=== PATIENT | female | born 1980 | race Caucasian/White ===

== ENCOUNTER → 2022-06-19 12:23 | Outpatient (CLI) | payer BC, SELFPAY ==
--- NOTE | ~2022-06-19 | MM_ITS ---
EXAMINATION: MM screening jimmy BI w elza HISTORY: Screening mammogram TECHNIQUE: Craniocaudal and mediolateral oblique 3-D tomosynthesis images were obtained and synthetic 2-D images were generated. Bilateral rotated lateral CC views. CAD analysis was submitted and interp reted. COMPARISON: No prior mammogram is available for comparison at this institution. BREAST PARENCHYMAL COMPOSITION: The breasts are extremely dense, which lowers the sensitivity of mamm ography. FINDINGS: Numerous punctate benign-appearing microcalcifications scattered in the fibroglandular stro ma bilaterally. There is no evidence of suspicious mass, calcification, or architectural distortion t o suggest malignancy in either breast. There has been no suspicious interval change. IMPRESSION: 1. No mammographic evidence of malignancy. 2. Recommend routine screening mammography in one year. BI-RADS Category 2: Benign finding(s). Reviewed, dictated and finalized at location A.
== END ==
PROVIDERS: PCP Physician Assistant Medical; Visit Provider Obstetrics & Gynecology Gynecology
DX: Z12.31 Encounter for screening mammogram for malignant neoplasm of breast (principal)
CPT/HCPCS: 77063; 77067

== ENCOUNTER 2022-12-09 18:43 | Emergency (ER) | payer BC, SELFPAY ==
--- NOTE | ~2022-12-09 | CT_ITS ---
EXAMINATION: CT abdomen pelvis wo con DATE: 12/09/2022 20:19 INDICATION: Eval urolithiasis. TECHNIQUE: Computed tomography (CT) of the abdomen and pelvis was performed with intravenous contrast . Automated exposure control and iterative reconstruction technique were employed. The dose-length pr oduct was 207.24 mGy-cm. COMPARISON: None. FINDINGS: Lower thorax: Unremarkable Liver: Normal. Biliary/Gallbladder: Gallbladder is partially collapsed. No bile duct dilation. Pancreas: No mass or duct dilation. Spleen: Normal. Adrenals:No mass. Kidneys: No mass, stone, or hydronephrosis. GI tract: No small or large bowel dilation. Appendix not confidently visualized. Mesentery/Peritoneum: No ascites, mass, or free air. Retroperitoneum: No mass. Pelvis: Pelvic organs are within normal limits. Soft Tissues: Soft tissues and body wall unremarkable. Bones: No acute osseous finding. IMPRESSION: No acute abdominopelvic process detected. Specifically there is no CT evidence of nephrolithiasis or obstructive uropathy. Reviewed, dictated and finalized at location K.
[2022-12-09 18:51] VITALS: BP 143/80; PULSE 104; RESP 18; TEMP 37; O2SAT 100
[2022-12-09 19:34] LABS: Bacteria Urine Rare /hpf; Need Manual Microscopic Reviewed; RBC Urine >100 /hpf (0-2); Squamous Epithelial Cell Urine Occasional /hpf (Few)
[2022-12-09 19:58] LABS: Appearance Urine Clear (Clear); Bilirubin Urine 1+ (Negative); Blood Urine 3+ (Negative); Color Urine Brown (Yellow); Glucose Urine UA Negative (Negative); Ketones Urine 1+ mg/dL (Negative); Leukocyte Esterase Ur Trace LEU/UL (Negative); Nitrate Urine Positive (Negative); Protein Urine 3+ mg/dL (Negative); Specific Grav Ur >= 1.030 (1.001-1.035)
[2022-12-09 20:00] LABS: Add Urine Microscopic? YES
[2022-12-09 20:37] LABS: Basophils Percent Auto 0.2 % (0.2-1.2); Eosinophils Absolute Auto 0.2 K/mm3 (0-0.3); Eosinophils Percent Auto 1.4 % (0-4.4); Hematocrit 41.3 % (37.0-47.0); Immature Granulocyte Absolute 0.04 K/mm3 (0.00-0.031); Immature Granulocyte Percent A 0.3 % (0-0.5); Lymphocytes Absolute Auto 2.38 K/mm3 (0.9-3.2); Lymphocytes Percent Auto 18.5 % (18.3-44.2); Mean Corpuscular HGB Conc 33.9 g/dl (32-36); Mean Corpuscular Hemoglobin 31.3 pg (26-34); Mean Corpuscular Volume 92.2 fl (80-100); Mean Platelet Volume 11.8 fl (7.4-10.4); Monocytes Percent Auto 7.9 % (2.6-8.5); Neutrophils Absolute Auto 9.2 K/mm3 (1.3-6.7); Neutrophils Percent Auto 71.7 % (45.5-73.1); Platelet Count Result 286 k/mm3 (150-375); Red Blood Count 4.48 M/mm3 (4.2-5.4); Red Cell Distribution Width 12.2 % (11.5-14.5); White Blood Count 12.9 K/mm3 (4.5-10.0)
[2022-12-09 20:48] LABS: Anion Gap 8 mmol/L (8-16); Blood Urea Nitrogen 14 mg/dL (7-17); Carbon Dioxide 27 mmol/L (22-30); Chloride 103 mmol/L (98-107); Estimated CRCL calculation 95 ml/min; Estimated Glomerular Filt Rate > 60; Glucose 96 mg/dL (65-110); Sodium 138 mmol/L (137-145)
[2022-12-09] MEDS: ACETAMINOPHEN 500 MG TABLET 1000 MG PO (20:58)
[2022-12-09] MEDS: ONDANSETRON INJ 4 MG/2 ML VIAL IV PUSH (20:58)
[2022-12-09] MEDS: IBUPROFEN 400 MG TABLET 800 MG PO (20:58)
--- NOTE | 2022-12-09 21:15 | ED.GENADULT ---
HPI - General Adult General Chief complaint: Urogenital-Female Stated complaint: blood in urine Time Seen by Provider: 12/09/22 19:05 History of Present Illness HPI narrative: This is a 42-year-old female presenting ED with a chief complaint of hematuria. Patient said that this started today where she is having william hematuria. Associated with irritation burning and suprapubic pain. She has had increased urgency and frequency. She has had issues initiating her urine stream. patient has a history of bladder prolapse but has not had issues like this before. The patient denies flank pain. She denies fever, chills, chest pain difficulty breathing nausea vomiting or diarrhea. Related Data Home Medications Medication Instructions Recorded Confirmed vitamin D BYMOUTH 08/28/22 08/29/22 control BYMOUTH 08/29/22 08/29/22 propranolol 60 mg capsule,24 60 mg PO DAILY 08/29/22 08/29/22 hr,extended release Allergies Allergy/AdvReac Type Severity Reaction Status Date / Time No Known Allergies Allergy Verified 12/09/22 18:44 [facility] Past Medical History Medical History Anxiety B12 deficiency Colitis Dyslipidemia Mitral valve prolapse SVT (supraventricular tachycardia) Uveitis Vitamin D deficiency Surgical History Surgical History History of radiofrequency ablation (RFA) procedure for cardiac arrhythmia Family History Family History Father Hypertension Grandparent Breast cancer Ovarian cancer Colon cancer Social History Social History Smoking status: Never smoker Alcohol intake: current Alcohol use details: social - every 3 mths 2 drinks Substance use: current Living arrangements: with family Occupation/Education: other Additional occupation/education comments: home Gender identity (if verbalized by the patient): Female Exam Narrative: APPEARANCE: Patient is pacing the room, she appears anxious Head: atraumatic. EYES: EOMI, NOSE: Atraumatic NECK: Trachea midline RESPIRATORY: No increased rate of breathing CARDIOVASCULAR: RRR, ABDOMINAL: tenderness palpation the suprapubic area, no CVA tenderness no guarding rebound MUSCULOSKELETAl: No obvious deformities NEURO: Alert. Moving 4/4 extremities SKIN:: Warm, dry. Normal color PSYCHIATRIC: Normal affect Course Vital Signs Vital signs: Vital Signs Temperature 98.6 F 12/09/22 18:51 Pulse Rate 104 H 12/09/22 18:51 Respiratory Rate 18 12/09/22 18:51 Blood Pressure 143/80 H 12/09/22 18:51 Pulse Oximetry 100 12/09/22 18:51 Temperature 98.6 F 12/09/22 18:51 Pulse Rate 104 H 12/09/22 18:51 Respiratory Rate 18 12/09/22 18:51 Blood Pressure 143/80 H 12/09/22 18:51 Pulse Oximetry 100 12/09/22 18:51 Medical Decision Making MDM Narrative Medical decision making narrative: -Presentation: 42-year-old female presenting with urinary symptoms and hematuria. She has had dish in difficulty initiating her stream. . Urinalysis lab work and CT abdomen ordered. 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 Metabolic panel was normal. Urinalysis showed greater than 100 red blood cells, leuk esterase, positive nitrites, 6-10 white blood cells. Given the patient's symptoms is likely urinary tract infection. She has been given 1 dose of ceftriax
--- NOTE | 2022-12-09 21:33 | PC.NURSE ---
Bladder scan done at bedside with amount fo 79-130ml. Dr. Gong made aware. Per Dr. Gong continue with discharge and f/u urology.
[2022-12-09] MEDS: PHENAZOPYRIDINE HCL 100 MG TABLET 200 MG PO (21:44)
[2022-12-09 21:46] VITALS: BP 122/73; PULSE 78; RESP 16; O2SAT 100
== END 2022-12-09 21:47 | disposition home or self-care (01) ==
PROVIDERS: Emergency Medicine; Emergency Provider Emergency Medicine; PCP Physician Assistant Medical
DX: N39.0 Urinary tract infection, site not specified (principal); R31.9 Hematuria, unspecified; N81.10 Cystocele, unspecified; F41.9 Anxiety disorder, unspecified
CPT/HCPCS: 36415; 74176; 80048; 81001; 81025; 85025; 96365; 96375; 99284; A9270; J0696; J2405

== ENCOUNTER 2023-02-27 13:32 | Outpatient (CLI) | payer BC, SELFPAY ==
--- NOTE | ~2023-02-27 | MR_ITS ---
MR breast BI wo/w con 02/28/2023 08:27 CDT INDICATION: Extremely dense breasts. TECHNIQUE: MRI of the breasts perform using standard protocol pre-and post IV contrast with the follo wing sequences: Axial T2 STIR, axial T1, axial vibrant T1 with fat suppression precontrast and multip hasic postcontrast. COMPARISON: Screening mammogram dated 06/19/2022 FINDINGS: There are no abnormalities on the precontrast sequences. There is marked background parench ymal enhancement. There is diffuse scattered nodular foci of enhancement throughout both breasts whic h is symmetric. In the right breast at 8:00 in the lower outer quadrant, middle third, 4.9 cm from th e nipple there is a mass measuring 1.3 x 0.7 x 0.5 cm with washout enhancement. In the upper outer qu adrant of the right breast at 11:00, middle third, 5.3 cm from the nipple there is a mass measuring 1 .2 x 1.4 x 0.8 cm with washout enhancement. In the lower outer quadrant of the right breast at 7:00 p osterior third, 7.6 cm from the nipple there is a 9 x 6 x 5 mm mass with washed out enhancement. No a reas of enhancement meeting threshold criteria on CAD analysis. No evidence of signal abnormalities in the axillary or internal mammary node distributions. There are multiple small cysts. LEFT BREAST: No signal abnormalities on precontrast sequences. There is marked background parenchyma l enhancement. Diffuse nodular foci of enhancement is present throughout both breasts which is symmet josefina. In the lower inner quadrant of the left breast at 6:00 anterior third, 5.4 cm from the nipple th ere is a 5 mm mass with washout enhancement. In the lower outer quadrant of the left breast at 6:00 p osteriorly, 7.4 cm from the nipple there is a 9 x 5 x 6 mm mass with washout enhancement. No evidence of signal abnormalities in the axillary or internal mammary node distributions. There are multiple s mall cysts. IMPRESSION: 1: Extremely limited study due to dense fibroglandular tissue and extensive background enhancement. T here is diffuse bilateral symmetric nodular enhancement throughout both breasts. In addition, there a re multiple masses of both breasts described above with washout enhancement. Recommend diagnostic sigifredo ateral mammogram and complete bilateral breast ultrasound. BI-RADS CATEGORY 0 - INCOMPLETE STUDY, NEED ADDITIONAL IMAGING EVALUATION. Reviewed, dictated and finalized at location A. IMPRESSION: 1: Extremely limited study due to dense fibroglandular tissue and extensive fernando kground enhancement. There is diffuse bilateral symmetric nodular enhancement t hroughout both breasts. In addition, there are multiple masses of both breasts described above with washout enhancement. Recommend diagnostic bilateral mammog cara and complete bilateral breast ultrasound. BI-RADS CATEGORY 0 - INCOMPLETE STUDY, NEED ADDITIONAL IMAGING EVALUATION.
== END 2023-02-27 13:33 | disposition home or self-care (01) ==
PROVIDERS: PCP Physician Assistant Medical; Visit Provider Obstetrics & Gynecology Gynecology
DX: R92.2 Inconclusive mammogram (principal)
CPT/HCPCS: 77049; A9577; C8908

== ENCOUNTER 2023-03-12 12:09 | Outpatient (CLI) | payer BC, SELFPAY ==
--- NOTE | ~2023-03-12 | MMUS_ITS ---
EXAMINATION: MM diagnostic jimmy BI w elza, US breast BI complete HISTORY: Abnormal 02/27/2023 MR breast examination TECHNIQUE: ML, MLO and CC 3-D tomosynthesis images of both breasts were performed and synthetic 2-D i mages were generated. CAD analysis was submitted and interpreted. High resolution complete bilateral breast ultrasound examination including all 4 quadrants and subareolar areas was performed. COMPARISON: 02/27/2023 MRI breast examination 06/19/2022 bilateral screening mammogram Breast parenchymal composition: There is extremely dense breast tissue, which lowers the sensitivity of mammography. FINDINGS: MAMMOGRAPHIC FINDINGS: Numerous punctate benign-appearing microcalcifications are scattered in the fibroglandular stroma bot h breasts. No suspicious mass, architectural distortion, malignant calcification, skin thickening or retraction of either breast or significant new or developing density is evident. ULTRASOUND: There are couple of benign circumscribed sonolucent lesions with through transmission posterior enhan cement of each breast, compatible with simple cyst, 2 situated at the right at 9:00 1 cm from the nip ple, measuring up to 8.4 and 7.5 mm, and one at left breast 2:00 position measuring up to 8 mm and an other at 3:00 left breast measuring up to 8 mm. No suspicious solid mass lesion or suspicious shadowing of either breast is detected. IMPRESSION: 1. Bilateral benign breast cysts; no mammographic or sonographic evidence of malignancy 2. Routine annual mammographic screening is recommended BI-RADS Category 2: Benign finding(s). Reviewed, dictated and finalized at location A. IMPRESSION: 1. Bilateral benign breast cysts; no mammographic or sonographic evidence of ma lignancy 2. Routine annual mammographic screening is recommended BI-RADS Category 2: Benign finding(s).
== END 2023-03-12 12:10 | disposition home or self-care (01) ==
LOC: ANHIMG 12:11
PROVIDERS: PCP Physician Assistant Medical; Visit Provider Obstetrics & Gynecology Gynecology
DX: R93.5 Abnormal findings on diagnostic imaging of other abdominal regions, including retroperitoneum (principal); R92.8 Other abnormal and inconclusive findings on diagnostic imaging of breast
CPT/HCPCS: 76641; 77062; 77066; G0279

== ENCOUNTER → 2023-05-20 11:16 | Outpatient (CLI) | payer BC, SELFPAY ==
--- NOTE | ~2023-05-20 | US_ITS ---
Pelvic ultrasound. Clinical History: Abnormal uterine bleeding Technique: Realtime transvaginal scanning of the pelvis was performed. Color flow Doppler and Doppler spectral analysis were performed. Findings: The uterus is anteverted. The endometrial stripe has a thickness of 5 mm. No focal mass is identified. The right ovary measures 1.9 x 1.3 x 2.3 cm. No significant right ovarian or adnexal mass is seen. The left ovary measures 1.8 x 0.7 x 1.5 cm. No significant left ovarian or adnexal mass is seen. Vascular flow present in both ovaries on Doppler spectral analysis. There is no evidence of free fluid in the cul de sac. Impression: Unremarkable pelvic ultrasound. Reviewed, dictated and finalized at location . Impression: Unremarkable pelvic ultrasound.
== END ==
PROVIDERS: PCP Advanced Practice Midwife; Visit Provider Advanced Practice Midwife
DX: R10.2 Pelvic and perineal pain (principal); N93.8 Other specified abnormal uterine and vaginal bleeding
CPT/HCPCS: 76830

== ENCOUNTER 2023-10-21 02:09 | Day surgery (SDC) | payer BC, SELFPAY ==
[2023-09-27 10:25] VITALS: BMI 26.7
--- NOTE | 2023-10-18 10:50 | SUR.PREOP ---
Patient called regarding upcoming procedure. Pt updated on arrival date and time. All questions answered
--- NOTE | 2023-10-19 15:30 | PM.HPGS ---
History of Present Illness History of Present Illness Consent: Risks, benefits, and alternatives have been discussed and questions answered. Patient agrees to proceed with procedure. Chief complaint: Unspecified abdominal pain Narrative: Vanessa Izquierdo is a 43 year old female who is referred for colon cancer screening.She had olyps removed 5 yrs ago. Also, she has monthly stabbing abd pain. Review of Systems Review of Systems: All systems reviewed & are unremarkable except as noted in HPI and below PMFSH Past Medical History Medical History Anxiety B12 deficiency Bladder prolapse stage 3 Colitis Dyslipidemia Mitral valve prolapse SVT (supraventricular tachycardia) Uveitis Vitamin D deficiency Surgical History Surgical History History of radiofrequency ablation (RFA) procedure for cardiac arrhythmia Family History Family History Father Hypertension Grandparent Breast cancer Ovarian cancer Colon cancer Social History Social History Smoking status: Never smoker Alcohol intake: never Alcohol use details: social - every 3 mths 2 drinks Substance use: never Substance use type: does not use Lack of Transportation: No Lack of Food: Never True Current Housing: I Have Housing Concerned About Future Housing: No Difficulty Paying Gas/Electric Bills: No Difficulty Paying for Meds: No Currently Unemployed: No Education: High School Diploma/GED Difficulty w/ Childcare or Family Care: No Living arrangements: with family Occupation/Education: other Additional occupation/education comments: home Gender identity (if verbalized by the patient): Female Spiritual care concerns: Yes (Leeanne withlottie) Meds Home Medications and Allergies Home Medications Medication Instructions Recorded Confirmed Type control 1 tab-cap BYMOUTH DAILY 08/29/22 09/27/23 History propranolol 60 mg capsule,24 60 mg PO DAILY 08/29/22 10/21/23 History hr,extended release Lactobacillus rhamnosus-Bifidobac. 1 cap PO .QD #30 caps 09/24/23 09/27/23 Rx animalis 3 billion cell capsule ([employer]) wheat dextrin 5 gram/7.4 gram oral See Rx Instructions PO .COMPLEX 09/24/23 09/27/23 Rx powder (Benefiber Healthy Shape) #500 grams duloxetine 60 mg capsule,delayed See Rx Instructions .Route 10/17/23 10/21/23 Rx release .COMPLEX #90 caps Allergies Allergy/AdvReac Type Severity Reaction Status Date / Time No Known Allergies Allergy Verified 10/21/23 12:23 Exam Const: General: alert Orientation/consciousness: patient oriented x3 Resp: Auscultation: clear to auscultation bilaterally Cardio: Rhythm: regular rhythm GI: GI Palp: Yes Soft to palpation and No Tenderness to palpation present (GI) Neuro: General: patient oriented x3 Assessment and Plan Assessment and plan (1) Colon cancer screening: Code(s): Z12.11 - Encounter for screening for malignant neoplasm of colon Status: Acute Assessment and Plan: Colonoscopy with possible biopsy or polypectomy or cautery or injection of substances.
[2023-10-21 12:30] VITALS: BP 128/85; PULSE 99; RESP 14; TEMP 36.4; O2SAT 100
[2023-10-21] MEDS: LACTATED RINGERS 1,000 ML 150 ML IV CONT (12:36)
--- NOTE | 2023-10-21 12:39 | WPDANESEPPF ---
Anes - Initial Pre Proc Eval Procedure: Operation Date: 10/21/23 13:30 Proposed Procedures p Colonoscopy - Geraldo Sanchez MD Date/Time: 10/21/23 12:39 Surgeon: Geraldo Sanchez MD Pre Op Diagnosis: Unspecified abdominal pain Patient Data Age: 43 Gender: F Height: 1.65 m Weight: 72.9 kg Allergies Allergy/AdvReac Type Severity Reaction Status Date / Time No Known Allergies Allergy Verified 10/21/23 12:23 Home Medications Medication Instructions Recorded Confirmed Type control 1 tab-cap BYMOUTH DAILY 08/29/22 09/27/23 History propranolol 60 mg capsule,24 60 mg PO DAILY 08/29/22 09/27/23 History hr,extended release Lactobacillus rhamnosus-Bifidobac. 1 cap PO .QD #30 caps 09/24/23 09/27/23 Rx animalis 3 billion cell capsule ([employer]) wheat dextrin 5 gram/7.4 gram oral See Rx Instructions PO .COMPLEX 09/24/23 09/27/23 Rx powder (Benefiber Healthy Shape) #500 grams duloxetine 60 mg capsule,delayed See Rx Instructions .Route 10/17/23 10/21/23 Rx release .COMPLEX #90 caps Patient hx anesthesia problems: none Family hx anesthesia problems: none Results Review: All pre-operative results and documents have been reviewed as part of the pre-operative evaluation. [facility] Past Medical History Medical History Anxiety B12 deficiency Bladder prolapse stage 3 Colitis Dyslipidemia Mitral valve prolapse SVT (supraventricular tachycardia) Uveitis Vitamin D deficiency Surgical History Surgical History History of radiofrequency ablation (RFA) procedure for cardiac arrhythmia Family History Family History Father Hypertension Grandparent Breast cancer Ovarian cancer Colon cancer Social History Social History Smoking status: Never smoker Alcohol intake: never Alcohol use details: social - every 3 mths 2 drinks Substance use: never Substance use type: does not use Lack of Transportation: No Lack of Food: Never True Current Housing: I Have Housing Concerned About Future Housing: No Difficulty Paying Gas/Electric Bills: No Difficulty Paying for Meds: No Currently Unemployed: No Education: High School Diploma/GED Difficulty w/ Childcare or Family Care: No Living arrangements: with family Occupation/Education: other Additional occupation/education comments: home Gender identity (if verbalized by the patient): Female Spiritual care concerns: Yes (Leeanne withlottie) Anes - Evtrang Final PreProcedure Day of Procedure 10/21/23 12:39 Patient weight: normal Heart: regular rate and rhythm Lungs: clear to auscultation Airway: Mallampati scale class II Neurological: alert and oriented Last oral intake: >/= 8 hours ASA classification: II Emergent: no Anesthetic plan: proceed Anesthesia type and monitoring: general GIVS and standard monitoring Results Review: All pre-operative results and documents have been reviewed as part of the pre-operative evaluation. Informed Consent: The patient's anesthetic plan and its attendant risks and benefits were discussed with the patient/family/POA. Questions were solicited and answers provided to the satisfaction of the patient/family/POA.
[2023-10-21 13:38] VITALS: BP 100/49; PULSE 89; RESP 20; O2SAT 100
[2023-10-21 13:48] VITALS: BP 110/57; PULSE 79; RESP 20; O2SAT 100
[2023-10-21 13:58] VITALS: BP 103/70; PULSE 80; RESP 20; O2SAT 100
== END 2023-10-21 14:04 | disposition home or self-care (01) ==
PROVIDERS: PCP Physician Assistant Medical; Visit Provider Internal Medicine Gastroenterology
PROC: 0DJD8ZZ Inspection of Lower Intestinal Tract, Via Natural or Artificial Opening Endoscopic (ICD-10-PCS; CPT 45378; principal; 2023-10-21 13:30)
DX: Z12.11 Encounter for screening for malignant neoplasm of colon (principal); F41.9 Anxiety disorder, unspecified; E78.5 Hyperlipidemia, unspecified; E53.8 Deficiency of other specified B group vitamins; E55.9 Vitamin D deficiency, unspecified; Z86.010 Personal history of colon polyps; Z86.79 Personal history of other diseases of the circulatory system; Z87.448 Personal history of other diseases of urinary system; Z80.3 Family history of malignant neoplasm of breast; Z80.41 Family history of malignant neoplasm of ovary; Z80.0 Family history of malignant neoplasm of digestive organs
CPT/HCPCS: 45380; 88305; J2704; J7120